=== PATIENT | male | born 1960 | race Caucasian/White ===

== ENCOUNTER 2024-03-02 08:41 | Outpatient (CLI) | payer OTHER, SELFPAY | END 2024-03-02 08:42 | disposition home or self-care (01) | LOC: ANHAUDIO 08:43 | PROVIDERS: PCP Physician Assistant; Visit Provider Physician Assistant | DX: H93.13 Tinnitus, bilateral (principal); H90.3 Sensorineural hearing loss, bilateral | CPT/HCPCS: 92557; 92567 ==